=== PATIENT | female | born 1950 | race African-American/Black ===

== ENCOUNTER 2022-12-13 22:12 | Emergency (ER) | payer OTHER, MEDICAID ==
[~2022-12-13] VITALS: Ht 167.6 cm; Wt 108.0 kg
[~2022-12-13 22:12] MED LIST: ALBU90AE INH; AZIT250T12 PO; P20 MT
[2022-12-13 22:45] VITALS: O2SAT 98
[2022-12-14] MEDS ORDERED: KETOROLAC 30MG/ML VIAL IM ONE (01:15)
[2022-12-14 02:06] VITALS: BP 110/95
[2022-12-14] MEDS ORDERED: KETO30VI PO (02:28)
[2022-12-14] MEDS ORDERED: LIDO700A15 TP (02:28)
[2022-12-14 03:02] VITALS: PULSE 100; RESP 18; TEMP 98.7
== END 2022-12-14 03:00 | disposition home or self-care (01) ==
LOC: ER 22:31
DX: G89.29 Other chronic pain (principal); M54.9 Dorsalgia, unspecified; J45.909 Unspecified asthma, uncomplicated; Z88.0 Allergy status to penicillin; Z88.5 Allergy status to narcotic agent; Z91.040 Latex allergy status; Z79.899 Other long term (current) drug therapy
CPT/HCPCS: 99283; 96372; J1885